=== PATIENT | female | born 1990 | race Caucasian/White ===

== ENCOUNTER 2019-10-31 11:48 | Emergency (ER) | payer SELFPAY ==
[2019-10-31 13:30] VITALS: BP 121/82
[2019-10-31 13:49] LABS: Influenza A Molecular Negative (Negative); Influenza B Molecular Negative (Negative)
--- NOTE | 2019-10-31 14:19 | UC ---
FLU HPI - HPI Summary HPI Summary: 29-year-old female presents with 5-6 day history of general malaise, nasal congestion, runny nose, sore throat, dry nonproductive cough, and nausea. 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 Denies fever, chills, ear pain, dysphagia, chest pain, shortness of breath, abdominal pain, vomiting, or diarrhea. - History of Current Complaint Chief Complaint: UCRespiratory Stated Complaint: SORE THROAT COUGH Time Seen by Provider: 10/31/19 13:52 Hx Obtained From: Patient Hx Last Menstrual Period: 11/03/19 Pain Intensity: 6 - Allergy/Home Medications Allergies/Adverse Reactions: Allergies Allergy/AdvReac Type Severity Reaction Status Date / Time Penicillins Allergy Hives Verified 10/31/19 13:24 Home Medications: Home Medications Dm/P-Ephed/Acetaminoph/Doxylam [Lucretia War Plus Severe 10-12.5-20-650 mg] 1 pow PO ONCE PRN 10/31/19 [History Confirmed 10/31/19] PMH/Surg Hx/FS Hx/Imm Hx Previously Healthy: Yes - Denies significant PMH - Surgical History Surgical History: None - Family History Known Family History: Negative: Respiratory Disease - Social History Occupation: Employed Full-time Lives: With Family Alcohol Use: None Alcohol Amount: gave up ETOH Substance Use Type: None Smoking Status (MU): Never Smoked Tobacco - Immunization History Most Recent Influenza Vaccination: Not the 2014/2015 Season Review of Systems All Other Systems Reviewed And Are Negative: Yes Constitutional: Negative: Fever, Chills Skin: Negative: Rash Eyes: Negative: Drainage, Eye Redness ENT: Positive: Sore Throat, Nasal Discharge, Sinus Congestion. Negative: Ear Ache, Sinus Pain/Tenderness Respiratory: Positive: Cough. Negative: Shortness Of Breath Cardiovascular: Negative: Palpitations, Chest Pain Gastrointestinal: Positive: Nausea. Negative: Abdominal Pain, Vomiting, Diarrhea Genitourinary: Positive: Negative Musculoskeletal: Positive: Negative Neurological/Mental Status: Positive: Negative Is Patient Immunocompromised?: No Physical Exam - Summary Physical Exam Summary: GENERAL APPEARANCE: Well developed, well nourished, alert and cooperative, and appears to be in no acute distress. EYES: Conjunctiva clear. No drainage. EARS: External auditory canals and tympanic membranes clear, hearing grossly intact. NOSE: Mild-moderate nasal congestion. No nasal discharge. THROAT: Pharyngeal erythema. No tonsilar inflammation, swelling, exudate, or lesions. Uvula midline. NECK: Neck supple, non-tender without lymphadenopathy. CARDIAC: Normal S1 and S2. No S3, S4 or murmurs. Rhythm is regular. There is no peripheral edema, cyanosis or pallor. Extremities are warm and well perfused. Capillary refill is less than 2 seconds. Peripheral pulses intact. LUNGS: Clear to auscultation without rales, rhonchi, wheezing or diminished breath sounds. Dry, nonproductive cough. ABDOMEN: Positive bowel sounds. Soft, nondistended, nontender. No guarding or rebound. No masses or hepatosplenomegally. MUSKULOSKELETAL: ROM intact to all extremities. No joint erythema or tenderness. Normal muscular development. Normal gait. SKIN: Skin normal color, texture and turgor with no lesions or eruptions. Triage Information Reviewed: Yes Vital Signs: Initial Vital Signs Temp 98.6 F 10/31/19 13:25 Pulse 68 10/31/19 13:25 Resp 17 10/31/19 13:25 BP 121/82 10/31/19 13:25 Pulse Ox 100 10/31/19 13:25 Vital Signs Reviewed: Yes Flu Course/Dx - Course Course Of Treatment: 29-year-old female presents with 5-6 day history of general malaise, nasal congestion, runny nose, sore throat, dry nonproductive cough, and nausea. 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 Denies fever, chills, ear pain, dysphagia, chest pain, shortness of breath, abdominal pain, vomiting, or diarrhea. Afebrile. Vital signs stable. Patient had mild nasal congestion, normal TMs, pharyngeal erythema without tonsillar swelling or exudate, no cervical lymphadenopathy, clear bilateral breath sounds , dry nonproductive cough, and otherwise unremarkable exam. Rapid flu test was negative. Reviewed results with the patient. Recommending symptomatic treatment for viral upper respiratory infection. She is to follow-up with her primary care provider in 3-5 days if symptoms are not improving. Anticipatory guidance warning signs are reviewed with the patient. Verbalizes understanding and agrees with plan of care. - Differential Dx/Diagnosis Differential Diagnosis/HQI/PQRI: Bronchitis, Influenza, Pneumonia, Upper Respiratory Infection Provider Diagnosis: Viral URI with cough Discharge ED - Sign-Out/Discharge Documenting (check all that apply): Patient Departure All imaging exams completed and their final reports reviewed: No Studies - Discharge Plan Condition: Stable Disposition: HOME Patient Education Materials: Upper Respiratory Infection (ED) Referrals: To Duenas MD [Primary Care Provider] - 3 Days Additional Instructions: Your flu test in the clinic today was negative. Get plenty of rest. Drink plenty of fluids to avoid dehydration especially if you are running any fever. Take over the counter acetaminophen (Tylenol) or ibuprofen (Advil, Motrin) according to directions as needed for pain or fever. Use an over the counter decongestant such as Sudafed according to directions to help with nasal congestion. Use salt water gargles several times a day if you have a sore throat. You may also use Chloraseptic spray or Cepacol lonzenges according to directions which contain a numbing medication and can provide some temporary relief from your sore throat. Follow up with your primary care provider in 3-5 days if symptoms persist. Seek immediate medical attention in the emergency room if you have fever greater than 100.5 F despite taking acetaminophen or ibuprofen, have chest pain , difficulty breathing, are unable to swallow, or have any worsening of symptoms. - Billing Disposition and Condition Condition: STABLE Disposition: Home - Attestation Statements Provider Attestation: This patient was not seen by me. I was available for consult. Chart reviewed. GRISEL
== END 2019-10-31 14:27 | disposition home or self-care (01) ==
LOC: UCCORT 11:48
DX: J06.9 Acute upper respiratory infection, unspecified (principal); R05 Cough; Z88.0 Allergy status to penicillin
CPT/HCPCS: 99201; G0463